=== PATIENT | male | born 1980 | race Caucasian/White ===

== ENCOUNTER 2017-05-01 17:16 | Emergency (ER) | payer SELFPAY ==
[~2017-05-01] VITALS: Ht 172.7 cm; Wt 72.4 kg
[~2017-05-01 17:16] MED LIST: IBUP-1277 PO
[2017-05-01 17:19] VITALS: TEMP 36.6; Ht 172.7 cm; Wt 72.4 kg
[2017-05-01] MEDS ORDERED: HYDR-5688 PO (17:47)
[2017-05-01] MEDS ORDERED: CLIN300C2 PO (17:47)
--- NOTE | 2017-05-01 17:48 | EMERGENCY ROOM VISIT NOTE ---
ED Visit Note First contact with patient: 17:26 CHIEF COMPLAINT: Toothache HISTORY OF PRESENT ILLNESS: This 36-year-old male patient presented to the emergency department ambulatory with a progressive toothache for past several weeks but has been worsening and he has had some facial swelling. The patient believes it is coming from right upper molar. The pain is now steady and severe and radiates to the face. The patient does not a dentist appointment set up and states he does not have insurance or dentist. They rate their pain a 8/10 and the ibuprofen and Tylenol they have been taking has not relieved the pain. The patient denies any discharge from the mouth. REVIEW OF SYSTEMS: A 10 system review of systems was completed with positives and pertinent negatives listed in the HPI. ALLERGIES: Penicillins, calamine, bee sting MEDICATIONS: Patient denies PMH: Patient denies SOCIAL HISTORY: The patient lives locally. He is employed PHYSICAL EXAM: Vitals are noted on the nurse's note and reviewed by myself. Vital signs stable. Temperature 36.6C orally. GENERAL: This is a 36-year-old male, in no acute distress, nondiaphoretic, well-developed well-nourished. Mouth: The right upper tooth is very carious and the gum is swollen and tender around it, without any discharge or signs of an abscess. The remainder of the pharynx and tonsils are without erythema, edema, or exudate. The airway is patent. There is no facial swelling, cervical or submandibular lymphadenopathy. The patient appears uncomfortable and in pain. The patient has overall very poor dental hygiene. ED COURSE: The patient was seen and examined. Previous visits were reviewed. The patient has very poor dentition. He does have some mild facial swelling. He is afebrile and nontoxic in appearance. There is no swelling beneath the tongue to suggest Thiago's angina. The patient will be given prescriptions for clindamycin and [place]. He was given information for [facility], Dr. Bruno and Dr. Garza. He should follow-up with the dentist for definitive management. He should return to the ER with any worsening symptoms. DIAGNOSIS: Odontalgia DISCHARGE INSTRUCTIONS & TREATMENT: Clindamycin 4 times daily for 10 days.[place] one tablet every 6 hours if needed for worse pain. Do not drink or drive while taking [place] and do not take with Tylenol. Followup with a dentist for definitive management of your tooth. Return with high fevers, worsening pain or swelling. Current/Historical Medications Scheduled Clindamycin Hcl (Cleocin), 300 MG PO QID Scheduled PRN Hydrocodone/Acetaminophen 5MG/325MG ([place] 5MG/325MG), 1 TABLET PO Q6 PRN for Pain Ibuprofen (Advil), 200-600 MG PO Q4H PRN for Pain Allergies Coded Allergies: Calamine (Verified Allergy, Mild, WORSENING RASH, 09/03/16) Penicillins (Unverified Allergy, Mild, 09/03/16) BEE STING (Verified Allergy, Unknown, UNKNOWN, 09/03/16) Vital Signs Date Time Temp Pulse Resp B/P (MAP) Pulse Ox O2 Delivery O2 Flow Rate FiO2 05/01/17 18:00 86 18 150/85 97 05/01/17 17:19 36.6 82 18 145/91 96 Room Air Departure Information Impression Primary Impression: Dental caries Additional Impression: Dental abscess Dispostion Home / Self-Care Condition GOOD Prescriptions Clindamycin Hcl (CLEOCIN) 300 Mg Cap 300 MG PO QID for 10 Days, #40 CAP Prov: Sarah Beth Herrmann PA-C 05/01/17 Hydrocodone/Acetaminophen 5MG/325MG ([place] 5MG/325MG) Tab 1 TABLET PO Q6 Y for Pain, #12 TAB For Initial Treatment Prov: Sarah Beth Herrmann PA-C 05/01/17 Referrals Yesenia Lizarraga D.O. (PCP) Flex Garza M.D. Patient Instructions [facility] Additional Instructions Clindamycin 4 times daily for 10 days.M[place] one tablet every 6 hours if needed for worse pain. Do not drink or drive while taking [place] and do not take with Tylenol. Followup with a dentist for definitive management of your tooth. Return with high fevers, worsening pain or swelling. Problem Qualifiers
[2017-05-01 18:00] VITALS: BP 150/85; PULSE 86; O2SAT 97
== END 2017-05-01 18:11 | disposition home or self-care (01) ==
LOC: C.EDB 17:18 → C.EDD 18:11
DX: K02.9 Dental caries, unspecified (principal); K04.7 Periapical abscess without sinus

== ENCOUNTER 2017-05-08 16:47 | Emergency (ER) | payer SELFPAY ==
[~2017-05-08] VITALS: Ht 172.7 cm; Wt 71.4 kg
[~2017-05-08 16:47] MED LIST changes: +CLIN300C2 PO; +HYDR-5688 PO
[2017-05-08 16:51] VITALS: TEMP 36.6; Ht 172.7 cm; Wt 71.4 kg
[2017-05-08] MEDS ORDERED: KETOROLAC TROMETHAMINE 30 MG/ML VIAL IV STA (17:30)
[2017-05-08 18:05] LABS: BASO % 0.4 %; BASO ABS # 0.03 K/uL (0-0.2); COMPLETE YES; EOS % 1.7 %; HEMATOCRIT 47.1 % (42-52); LYMPH % 28.9 %; LYMPH ABS # 2.39 K/uL (1.2-3.4); MEAN CELL VOLUME 96.3 fL (80-100); MEAN CORPUSCULAR HEMOGLOBIN 32.9 pg (25-34); MEAN CORPUSCULAR HGB CONC 34.2 g/dl (32-36); MEAN PLATELET VOLUME 10.7 fL (7.4-10.4); MONO % 10.5 %; NEUT % 58.5 %; PLATELET COUNT 222 K/uL (130-400); RED BLOOD COUNT 4.89 M/uL (4.7-6.1); WHITE BLOOD COUNT 8.28 K/uL (4.8-10.8)
[2017-05-08 18:13] LABS: POINT OF CARE TROPONIN I < 0.030 ng/ml (0-0.045)
[2017-05-08 18:13] LABS: INR 0.9 (0.9-1.1); PROTHROMBIN TIME (PATIENT) 10.1 SECONDS (9.0-12.0)
--- NOTE | 2017-05-08 18:22 | DIAGNOSTIC IMAGING REPORT ---
CHEST 2 VIEWS ROUTINE CLINICAL HISTORY: Left-sided chest pain COMPARISON STUDY: 01/13/2012 FINDINGS: The cardiac and mediastinal contours are normal. There is no evidence of focal pulmonary consolidation. There is no evidence of failure. No pleural effusions are visualized.[ No pneumothorax is visualized. IMPRESSION: No active disease in the chest. Electronically signed by: Dave Leary M.D. 05/08/2017 6:21 PM Dictated Date/Time: 05/08/2017 6:20 PM
[2017-05-08 18:48] LABS: ALB/GLOB RATIO 1.2 (0.9-2); ALKALINE PHOSPHATASE 93 U/L (45-117); ALT/SGPT 21 U/L (12-78); BLOOD UREA NITROGEN 16 mg/dl (7-18); BUN/CREATININE RATIO 15.7 (10-20); CALCIUM 9.5 mg/dl (8.5-10.1); CARBON DIOXIDE 27 mmol/L (21-32); CHLORIDE 105 mmol/L (98-107); GLUCOSE 110 mg/dl (70-99); SODIUM 138 mmol/L (136-145)
--- NOTE | 2017-05-08 19:01 | EMERGENCY ROOM VISIT NOTE ---
ED Visit Note First contact with patient: 17:12 CHIEF COMPLAINT: Left-sided chest pain times one day HISTORY OF PRESENT ILLNESS: Patient is an otherwise healthy 36-year-old white male who presents to the emergency department for evaluation of left-sided chest pain. He reports that his pain started abruptly yesterday around noon. He states that he suddenly developed some left-sided nasal congestion and a runny nose. He also developed a dull, constant, aching left-sided chest pain. It hurts to the touch also hurts with coughing and deep breathing. He has had a slight cough. He denies any shortness of breath. He did not take any medications, nor perform any interventions for his symptoms. He denies any direct trauma to the area, no unusual activity or heavy lifting which could have caused his symptoms. He feels sweaty and clammy at times, but denies any headache, lightheadedness, dizziness, nausea or vomiting. Pain does not radiate to the back, the jaw or the shoulder. He has been on clindamycin for about a week for a dental abscess which she states is improving. REVIEW OF SYSTEMS:Review of systems as per HPI. All other systems reviewed were negative. 10 systems reviewed. PMH: Electronic medical records are reviewed and summarized as above/below. See Problem List. SOCIAL HISTORY: Patient lives at home. He is employed. Smoker. PHYSICAL EXAM: Vital Signs: CONSTITUTIONAL: Patient is a well-appearing 36-year-old white male who is awake and alert and in no acute distress. Vital signs are stable. EYES: Pupils equal, round, reactive to light and accommodation. EOMs intact without nystagmus. Sclera are anicteric. ENT: Tympanic membranes intact, with normal landmarks. External canals are clear. Oral and nasopharynx are clear. Mucous membranes are moist, no lesions , tongue and gums appear normal. Poor dentition. NECK: Supple without lymphadenopathy. No thyromegaly. No meningeal signs. Full active range of motion without discomfort. CARDIOVASCULAR: Regular rate and rhythm, with normal S1 and S2, no murmur or gallop or rub is heard. No carotid bruits auscultated. No JVD. Peripheral pulses easily palpable. He has reproducible discomfort to palpation over the left costochondral border. RESPIRATORY: Breath sounds equal and clear to auscultation without wheezes, rales, or rhonchi heard. Full and equal chest expansion without accessory muscle use or retractions. ABDOMEN: Bowel sounds are present. Abdomen is soft, nontender and nondistended. INTEGUMENTARY: No lesions or rash, normal skin turgor. LYMPH: No lymphadenopathy. EMERGENCY DEPARTMENT COURSE: Patient was seen and assessed as above. His old records are reviewed. IV lock was initiated and he was medicated with Toradol 30 mg IV. Chest x-ray was obtained and was unremarkable. EKG was performed and was as noted below. CBC with differential, sedimentation rate, coags, cardiac enzymes, CMP and [id number] troponin and d-dimer were drawn. Laboratory studies demonstrated a normal white count, H&H, platelet count and coags. There is very slight slight elevation, nonspecific of his sedimentation rate. Electrolytes, renal functions, liver functions are all within normal limits. Troponin is negative 1 and Cardec enzymes are not elevated. Point-of- care d-dimer was normal, therefore further workup for PE was not pursued. All laboratory and diagnostic imaging studies were reviewed with the patient. He has reproducible left chest wall tenderness, and I suspect his symptoms are likely musculoskeletal in nature. Conservative care measures were discussed. He was encouraged to apply heat to the area and to take an anti-inflammatory medicine. The patient rated his pain a 5/10 at discharge. EKG: Normal sinus rhythm 76 beats per minute, no ectopy or acute ischemic changes, no change on review of prior EKGs. CHEST 2 VIEWS ROUTINE CLINICAL HISTORY: Left-sided chest pain COMPARISON STUDY: 01/13/2012 FINDINGS: The cardiac and mediastinal contours are normal. There is no evidence of focal pulmonary consolidation. There is no evidence of failure. No pleural effusions are visualized.[ No pneumothorax is visualized. IMPRESSION: No active disease in the chest. Differential diagnosis includes acute myocardial infarction, acute coronary syndrome, myocarditis, pericarditis, pericardial effusions /tamponade, esophageal perforation, pulmonary embolism, pneumonia, pneumothorax, cardiomyopathy, congestive heart failure, anemia , COPD/asthma exacerbation, musculoskeletal, anxiety, costochondritis,. Problem List Medical Problems: (1) Ankle pain Status: Resolved (2) Bilateral calcaneal fractures Status: Resolved (3) Bilateral calcaneal fractures Status: Resolved (4) Contusion of foot Status: Resolved (5) Dental abscess Status: Resolved (6) Dental caries Status: Resolved (7) Dental caries Status: Resolved (8) Fall Status: Resolved (9) Foot pain Status: Resolved (10) Foot pain Status: Resolved (11) Heel pain, bilateral Status: Resolved (12) Leg pain, bilateral Status: Resolved (13) Lumbar contusion Status: Resolved (14) Lumbar contusion Status: Resolved (15) Lumbar strain Status: Resolved (16) Odontalgia Status: Resolved (17) Osteopenia Status: Resolved (18) Periapical abscess Status: Resolved (19) Pre-syncope Status: Resolved Surgical Problems: (1) History of orthopedic surgery Status: Resolved Current/Historical Medications Scheduled Clindamycin Hcl (Cleocin), 300 MG PO QID Scheduled PRN Ibuprofen (Advil), 200-600 MG PO Q4H PRN for Pain Allergies Coded Allergies: Calamine (Verified Allergy, Mild, WORSENING RASH, 05/08/17) Penicillins (Unverified Allergy, Mild, 05/08/17) BEE STING (Verified Allergy, Unknown, UNKNOWN, 05/08/17) Vital Signs Date Time Temp Pulse Resp B/P (MAP) Pulse Ox O2 Delivery O2 Flow Rate FiO2 05/08/17 19:20 78 18 129/86 98 05/08/17 18:09 70 05/08/17 16:51 36.6 99 20 131/94 97 Room Air Laboratory Results 05/08/17 17:50 Red Blood Count 4.89, Mean Corpuscular Volume 96.3, Mean Corpuscular Hemoglobin 32.9, Mean Corpuscular Hemoglobin Concent 34.2, Mean Platelet Volume 10.7, Neutrophils (%) (Auto) 58.5, Lymphocytes (%) (Auto) 28.9, Monocytes (%) (Auto) 10.5, Eosinophils (%) (Auto) 1.7, Basophils (%) (Auto) 0.4, Neutrophils # (Auto ) 4.85, Lymphocytes # (Auto) 2.39, Monocytes # (Auto) 0.87, Eosinophils # (Auto ) 0.14, Basophils # (Auto) 0.03 05/08/17 17:50 Test 05/08/17 17:50 05/08/17 17:54 White Blood Count 8.28 K/uL (4.8-10.8) Red Blood Count 4.89 M/uL (4.7-6.1) Hemoglobin 16.1 g/dL (14.0-18.0) Hematocrit 47.1 % (42-52) Mean Corpuscular Volume 96.3 fL (80-100) Mean Corpuscular Hemoglobin 32.9 pg (25-34) Mean Corpuscular Hemoglobin Concent 34.2 g/dl (32-36) Platelet Count 222 K/uL (130-400) Mean Platelet Volume 10.7 fL (7.4-10.4) Neutrophils (%) (Auto) 58.5 % Lymphocytes (%) (Auto) 28.9 % Monocytes (%) (Auto) 10.5 % Eosinophils (%) (Auto) 1.7 % Basophils (%) (Auto) 0.4 % Neutrophils # (Auto) 4.85 K/uL (1.4-6.5) Lymphocytes # (Auto) 2.39 K/uL (1.2-3.4) Monocytes # (Auto) 0.87 K/uL (0.11-0.59) Eosinophils # (Auto) 0.14 K/uL (0-0.5) Basophils # (Auto) 0.03 K/uL (0-0.2) RDW Standard Deviation 46.7 fL (36.4-46.3) RDW Coefficient of Variation 13.2 % (11.5-14.5) Immature Granulocyte % (Auto) 0.0 % Immature Granulocyte # (Auto) 0.00 K/uL (0.00-0.02) Erythrocyte Sedimentation Rate 18 mm/hr (0-14) Prothrombin Time 10.1 SECONDS (9.0-12.0) Prothromb Time International Ratio 0.9 (0.9-1.1) Activated Partial Thromboplast Time 25.6 SECONDS (21.0-31.0) Partial Thromboplastin Ratio 1.0 Anion Gap 6.0 mmol/L (3-11) Est Creatinine Clear Calc Drug Dose 98.8 ml/min Estimated GFR () 111.7 Estimated GFR (Non- 96.4 BUN/Creatinine Ratio 15.7 (10-20) Calcium Level 9.5 mg/dl (8.5-10.1) Total Bilirubin 0.3 mg/dl (0.2-1) Aspartate Amino Transf (AST/SGOT) U/L (15-37) Alanine Aminotransferase (ALT/SGPT) 21 U/L (12-78) Alkaline Phosphatase 93 U/L (45-117) Total Creatine Kinase U/L (39-308) Creatine Kinase MB 2.0 ng/ml (0.5-3.6) Creatine Kinase MB Ratio (0-3.0) Total Protein 7.4 gm/dl (6.4-8.2) Albumin 4.0 gm/dl (3.4-5.0) Globulin 3.4 gm/dl (2.5-4.0) Albumin/Globulin Ratio 1.2 (0.9-2) Chemistry Specimen Hemolysis Bedside D-Dimer 182 ng/mlFEU (0-450) Bedside Troponin I < 0.030 ng/ml (0-0.045) Medications Administered Medications (Trade) Dose Ordered Sig/Selam Route Start Time Stop Time Status Last Admin Dose Admin Ketorolac Tromethamine (Toradol Inj) 30 mg NOW STAT IV 05/08/17 17:30 05/08/17 17:32 DC 05/08/17 17:57 30 MG Departure Information Impression Primary Impression: Chest wall pain Referrals Yesenia Lizarraga D.O. (PCP) Patient Instructions [facility] Additional Instructions Ibuprofen(Motrin, Advil) may be used for fever or pain. Use 600mg every six hours as needed. Take with food. Avoid using more than 2400mg in a 24 hour period. Do not use 2400mg per day for more than three consecutive days without physician direction. Prolonged inappropriate use can lead to stomach upset or ulcers. (AND/OR) Acetaminophen(Tylenol) may be used for fever or pain. Use 1000mg every six hours as needed. Avoid using more than 3000mg in a 24 hour period. Heat to the affected area. Rest and drink plenty of fluids as tolerated. Continue current medications. Avoid strenuous activities and anything that worsens your pain. Resume normal activities once your symptoms resolve. Return to the ER immediately for worsening or persistent chest pain, abdominal pain, vomiting, fevers, chest pains, difficulty breathing, worsening of your condition, or as needed. Follow up with your primary physician in 2-3 days for a recheck of your current condition.
[2017-05-08 19:20] VITALS: BP 129/86; PULSE 78; O2SAT 98
== END 2017-05-08 19:21 | disposition home or self-care (01) ==
LOC: C.EDB 16:49 → C.EDC 19:21
DX: R07.89 Other chest pain (principal); F17.200 Nicotine dependence, unspecified, uncomplicated; Z87.81 Personal history of (healed) traumatic fracture; Z87.828 Personal history of other (healed) physical injury and trauma; Z86.19 Personal history of other infectious and parasitic diseases; Z91.81 History of falling; Z88.0 Allergy status to penicillin; Z88.8 Allergy status to other drugs, medicaments and biological substances; Z91.030 Bee allergy status

== ENCOUNTER 2018-03-08 13:45 | Emergency (ER) | payer SELFPAY ==
[~2018-03-08] VITALS: Ht 172.7 cm; Wt 67.9 kg
[~2018-03-08 13:45] MED LIST changes: -CLIN300C2 PO; -HYDR-5688 PO
[2018-03-08 13:50] VITALS: TEMP 36.7; Ht 172.7 cm; Wt 67.9 kg
[2018-03-08] MEDS ORDERED: SODIUM CHLORIDE 0.9% 1000ML 1,000 ML IV STA (14:27)
[2018-03-08] MEDS ORDERED: ONDANSETRON INJ 2 MG/ML 2 ML VIAL IV STA (14:27)
[2018-03-08] MEDS ORDERED: KETOROLAC TROMETHAMINE 30 MG/ML VIAL IV STA (14:27)
[2018-03-08 14:57] LABS: BASO % 0.3 %; BASO ABS # 0.03 K/uL (0-0.2); EOS % 0.7 %; EOS ABS # 0.07 K/uL (0-0.5); HEMATOCRIT 43.5 % (42-52); HEMOGLOBIN 15.6 g/dL (14.0-18.0); IG# 0.02 K/uL (0.00-0.02); LYMPH % 23.3 %; LYMPH ABS # 2.25 K/uL (1.2-3.4); MEAN CELL VOLUME 92.9 fL (80-100); MEAN CORPUSCULAR HEMOGLOBIN 33.3 pg (25-34); MEAN CORPUSCULAR HGB CONC 35.9 g/dl (32-36); MEAN PLATELET VOLUME 10.8 fL (7.4-10.4); MONO % 8.2 %; MONO ABS # 0.79 K/uL (0.11-0.59); NEUT % 67.3 %; PLATELET COUNT 221 K/uL (130-400); RED CELL DISTRIBUTION WIDTH CV 13.2 % (11.5-14.5); RED CELL DISTRIBUTION WIDTH SD 44.9 fL (36.4-46.3); WHITE BLOOD COUNT 9.66 K/uL (4.8-10.8)
[2018-03-08 15:13] LABS: ALBUMIN 4.2 gm/dl (3.4-5.0); ALT/SGPT 17 U/L (12-78); AST/SGOT 14 U/L (15-37); BLOOD UREA NITROGEN 14 mg/dl (7-18); CALCIUM 8.7 mg/dl (8.5-10.1); CARBON DIOXIDE 29 mmol/L (21-32); CREATININE 0.99 mg/dl (0.60-1.40); GLUCOSE 75 mg/dl (70-99); LIPASE 128 U/L (73-393); POTASSIUM 4.1 mmol/L (3.5-5.1); SODIUM 139 mmol/L (136-145)
[2018-03-08 15:16] LABS: ALKALINE PHOSPHATASE 87 U/L (45-117)
[2018-03-08 15:19] VITALS: BP 113/75; PULSE 62; O2SAT 99
--- NOTE | 2018-03-08 15:19 | DIAGNOSTIC IMAGING REPORT ---
ABD/PELVIS WITHOUT FOR STONE HISTORY: 37 years-old Male flank pain acute bilateral flank pain COMPARISON: None available TECHNIQUE: Multiple axial CT images of the abdomen and pelvis were obtained without the use of IV contrast A dose lowering technique was used consistent with the principals of TAB. FINDINGS: Lung bases are generally clear. There is no pneumatosis or pneumoperitoneum identified. Imaged inferior cardiac chambers are unremarkable. Liver, spleen, gallbladder, pancreas and adrenal glands are within normal limits. Kidneys, ureters are unremarkable without obstructing calculi or obstructive uropathy identified. Mild wall thickening of the bladder with partial distention. Calcifications are seen within the central prostate. Aorta is normal in course and caliber. No bulky adenopathy. No bowel obstruction or focal bowel wall thickening. Normal appendix. Minimal noninflamed colonic diverticula. Soft tissues are unremarkable. The bones appear intact. Orthopedic hardware of the left hip appears intact. IMPRESSION: 1. No acute intra-abdominal or intrapelvic abnormality identified, specifically no renal calculi or obstructive uropathy. 2. Minimal colonic diverticulosis without diverticulitis. 3. Normal appendix. 4. Mild wall thickening of the bladder is likely secondary to partial distention. Correlate with urinalysis to exclude cystitis. The above report was generated using voice recognition software. It may contain grammatical, syntax or spelling errors. Electronically signed by: Anthony Ames M.D. 03/08/2018 3:17 PM Dictated Date/Time: 03/08/2018 3:11 PM
--- NOTE | 2018-03-08 18:08 | EMERGENCY ROOM VISIT NOTE ---
History Report prepared by Patrick: Genaro Person Under the Supervision of: Mili SorensonO. First contact with patient: 14:23 Chief Complaint: FLANK PAIN Stated Complaint: KIDNEY PAIN, SOB History of Present Illness The patient is a 37 year old male who presents to the Emergency Room with complaints of waxing and waning flank pain and shortness of breath that began this morning. The patient states that his symptoms began with lower abdominal pains this morning, and worsened to his flank pain. He states that his shortness of breath is secondary to the pain taking his breath away. Pain is sharp stabbing constant in the lower back. 10 out of 10 currently. Movement worsens his symptoms i.e. twisting turning and bending. He denies any other headache, change in vision, fevers, chest pain, nausea, vomiting, diarrhea, pain with urination, and melena. Source of History: patient Onset: This morning Position: abdomen, back (Flanks) Timing: waxes/wanes Associated Symptoms: + SOB, + abdominal pain, No nausea, No vomiting Review of Systems See HPI for pertinent positives & negatives. A total of 10 systems reviewed and were otherwise negative. Past Medical & Surgical Medical Problems: (1) Ankle pain (2) Bilateral calcaneal fractures (3) Bilateral calcaneal fractures (4) Contusion of foot (5) Dental abscess (6) Dental caries (7) Dental caries (8) Fall (9) Foot pain (10) Foot pain (11) Heel pain, bilateral (12) Leg pain, bilateral (13) Lumbar contusion (14) Lumbar contusion (15) Lumbar strain (16) No Known Active Medical Problems (17) Odontalgia (18) Osteopenia (19) Periapical abscess (20) Pre-syncope Surgical Problems: (1) History of orthopedic surgery Family History Cancer Diabetes mellitus Hypertension Lung disease Seizures Social History Smoking Status: Current Every Day Smoker Alcohol Use: occasionally Marital Status: in relationship Housing Status: lives with family Occupation Status: unemployed Current/Historical Medications No Active Prescriptions or Reported Meds Allergies Coded Allergies: Calamine (Verified Allergy, Mild, WORSENING RASH, 03/08/18) Penicillins (Unverified Allergy, Mild, 03/08/18) BEE STING (Verified Allergy, Unknown, UNKNOWN, 03/08/18) Physical Exam Vital Signs Date Time Temp Pulse Resp B/P (MAP) Pulse Ox O2 Delivery O2 Flow Rate FiO2 03/08/18 15:19 62 16 113/75 99 Room Air 03/08/18 13:50 36.7 101 18 130/81 97 Room Air Physical Exam GENERAL: Sitting up in bed, alert, disheveled appearing, holding lower back, well nourished, no distress, non-toxic EYE EXAM: normal conjunctiva. PERRL and EOM's intact. OROPHARYNX: no exudate, no erythema, lips, buccal mucosa, and tongue normal and mucous membranes are moist NECK: supple, no nuchal rigidity, no adenopathy, non-tender LUNGS: Clear to auscultation. Normal chest wall mechanics HEART: no murmurs, S1 normal and S2 normal ABDOMEN: abdomen soft, non-tender, normo-active bowel sounds, no masses, no rebound or guarding. BACK: Back is symmetrical on inspection and there is no deformity, no midline tenderness, no CVA tenderness. There is lower lumbar paraspinal tenderness bilaterally. SKIN: no rashes and no bruising UPPER EXTREMITIES: upper extremities are grossly normal. LOWER EXTREMITIES: No pitting edema. Flexion/extension of hips, knees, ankles, and EHL are 5/5 bilaterally. NEURO EXAM: Normal sensorium, cranial nerves II-XII intact, normal speech, no weakness of arm. Gross sensation intact. Medical Decision & Procedures ER Provider Diagnostic Interpretation: Radiology results as stated below per my review and the radiologist's interpretation: ABD/PELVIS WITHOUT FOR STONE HISTORY: 37 years-old Male flank pain acute bilateral flank pain COMPARISON: None available TECHNIQUE: Multiple axial CT images of the abdomen and pelvis were obtained without the use of IV contrast A dose lowering technique was used consistent with the principals of ALARA. FINDINGS: Lung bases are generally clear. There is no pneumatosis or pneumoperitoneum identified. Imaged inferior cardiac chambers are unremarkable. Liver, spleen, gallbladder, pancreas and adrenal glands are within normal limits. Kidneys, ureters are unremarkable without obstructing calculi or obstructive uropathy identified. Mild wall thickening of the bladder with partial distention. Calcifications are seen within the central prostate. Aorta is normal in course and caliber. No bulky adenopathy. No bowel obstruction or focal bowel wall thickening. Normal appendix. Minimal noninflamed colonic diverticula. Soft tissues are unremarkable. The bones appear intact. Orthopedic hardware of the left hip appears intact. IMPRESSION: 1. No acute intra-abdominal or intrapelvic abnormality identified, specifically no renal calculi or obstructive uropathy. 2. Minimal colonic diverticulosis without diverticulitis. 3. Normal appendix. 4. Mild wall thickening of the bladder is likely secondary to partial distention. Correlate with urinalysis to exclude cystitis. The above report was generated using voice recognition software. It may contain grammatical, syntax or spelling errors. Electronically signed by: Anthony Ames M.D. 03/08/2018 3:17 PM Dictated Date/Time: 03/08/2018 3:11 PM Laboratory Results 03/08/18 14:34 Red Blood Count 4.68, Mean Corpuscular Volume 92.9, Mean Corpuscular Hemoglobin 33.3, Mean Corpuscular Hemoglobin Concent 35.9, Mean Platelet Volume 10.8, Neutrophils (%) (Auto) 67.3, Lymphocytes (%) (Auto) 23.3, Monocytes (%) (Auto) 8.2, Eosinophils (%) (Auto) 0.7, Basophils (%) (Auto) 0.3, Neutrophils # (Auto) 6.50, Lymphocytes # (Auto) 2.25, Monocytes # (Auto) 0.79, Eosinophils # (Auto) 0.07, Basophils # (Auto) 0.03 03/08/18 14:34 Test 03/08/18 14:34 03/08/18 14:46 White Blood Count 9.66 K/uL (4.8-10.8) Red Blood Count 4.68 M/uL (4.7-6.1) Hemoglobin 15.6 g/dL (14.0-18.0) Hematocrit 43.5 % (42-52) Mean Corpuscular Volume 92.9 fL (80-100) Mean Corpuscular Hemoglobin 33.3 pg (25-34) Mean Corpuscular Hemoglobin Concent 35.9 g/dl (32-36) Platelet Count 221 K/uL (130-400) Mean Platelet Volume 10.8 fL (7.4-10.4) Neutrophils (%) (Auto) 67.3 % Lymphocytes (%) (Auto) 23.3 % Monocytes (%) (Auto) 8.2 % Eosinophils (%) (Auto) 0.7 % Basophils (%) (Auto) 0.3 % Neutrophils # (Auto) 6.50 K/uL (1.4-6.5) Lymphocytes # (Auto) 2.25 K/uL (1.2-3.4) Monocytes # (Auto) 0.79 K/uL (0.11-0.59) Eosinophils # (Auto) 0.07 K/uL (0-0.5) Basophils # (Auto) 0.03 K/uL (0-0.2) RDW Standard Deviation 44.9 fL (36.4-46.3) RDW Coefficient of Variation 13.2 % (11.5-14.5) Immature Granulocyte % (Auto) 0.2 % Immature Granulocyte # (Auto) 0.02 K/uL (0.00-0.02) Anion Gap 5.0 mmol/L (3-11) Est Creatinine Clear Calc Drug Dose 98.1 ml/min Estimated GFR () 112.3 Estimated GFR (Non- 96.9 BUN/Creatinine Ratio 14.6 (10-20) Calcium Level 8.7 mg/dl (8.5-10.1) Total Bilirubin 0.3 mg/dl (0.2-1) Direct Bilirubin < 0.1 mg/dl (0-0.2) Aspartate Amino Transf (AST/SGOT) 14 U/L (15-37) Alanine Aminotransferase (ALT/SGPT) 17 U/L (12-78) Alkaline Phosphatase 87 U/L (45-117) Total Protein 8.0 gm/dl (6.4-8.2) Albumin 4.2 gm/dl (3.4-5.0) Lipase 128 U/L (73-393) Urine Color YELLOW Urine Appearance CLEAR (CLEAR) Urine pH 6.5 (4.5-7.5) Urine Specific [place] 1.012 (1.000-1.030) Urine Protein NEG (NEG) Urine Glucose (UA) NEG (NEG) Urine Ketones NEG (NEG) Urine Occult Blood NEG (NEG) Urine Nitrite NEG (NEG) Urine Bilirubin NEG (NEG) Urine Urobilinogen NEG (NEG) Urine Leukocyte Esterase NEG (NEG) Urine WBC (Auto) 1-5 /hpf (0-5) Urine RBC (Auto) 0-4 /hpf (0-4) Urine Hyaline Casts (Auto) 0 /lpf (0-5) Urine Epithelial Cells (Auto) 0-5 /lpf (0-5) Urine Bacteria (Auto) NEG (NEG) Laboratory results per my review. Medications Administered Medications (Trade) Dose Ordered Sig/Selam Route Start Time Stop Time Status Last Admin Dose Admin Sodium Chloride 1,000 ml @ 999 mls/hr Q1H1M STAT IV 03/08/18 14:27 03/08/18 15:27 DC 03/08/18 14:45 999 MLS/HR Ondansetron HCl (Zofran Inj) 4 mg NOW STAT IV 03/08/18 14:27 03/08/18 14:29 DC 03/08/18 14:46 4 MG Ketorolac Tromethamine (Toradol Inj) 30 mg NOW STAT IV 03/08/18 14:27 03/08/18 14:29 DC 03/08/18 14:45 30 MG ED Course ED COURSE: Vital signs were reviewed and showed normal vitals. The patients medical record was reviewed The above diagnostic studies were performed and reviewed. ED treatments and interventions as stated above. 1424: The patient was evaluated in room B12B. A complete history and physical examination was performed. 1427: Ordered Toradol 30 mg IV, Zofran 4 mg IV, Sodium Chloride 1000 mL @ 999 mL /hr IV. 1358: Upon reevaluation, the patient is resting in bed.I discussed my findings with the patient and he understands and agrees with the treatment plan. Based on the patients age, coexisting illnesses, exam and lab findings the decision to treat as an outpatient was made. The patient remained stable while under my care. The patient appeared well at the time of discharge. Medical Decision Differential diagnosis: Etiologies such as renal colic, appendicitis, diverticulitis, mesenteric ischemia, aortic pathology, infections, inflammatory bowel disease, PUD, biliary pathology, UTI, as well as others were entertained. Patient is a 37-year-old male who presents to ER for lower back pain. He has a benign abdominal exam. Vitals are stable. CBC along with BMP, LFTs, bilirubin lipase is normal. UA was negative. CT abdomen pelvis was benign. Patient was given IV Toradol. He did feel significant better. UA as discussed above was unremarkable. I do favor this likely muscle skeletal with twisting turning bending and palpation worsening his symptoms. He was updated at bedside. He is discharged follow-up with PCP as an outpatient. Discussed with Pt concerning signs and symptoms to watch out for. Pt was instructed to follow up with their PCP and discussed with the patient their option to return to the ED at anytime for persistent or worsening symptoms. The appropriate anticipatory guidance and out-patient management, including indications for return to the emergency department, were explained at length to the patient and understood. Medication Reconcilliation Current Medication List: was personally reviewed by me Blood Pressure Screening Patient's blood pressure: Normal blood pressure Impression Primary Impression: Back pain Scribe Attestation The scribe's documentation has been prepared under my direction and personally reviewed by me in its entirety. I confirm that the note above accurately reflects all work, treatment, procedures, and medical decision making performed by me. Departure Information Dispostion Home / Self-Care Prescriptions No Active Prescriptions or Reported Meds Referrals Yesenia Lizarraga D.O. (PCP) Forms HOME CARE DOCUMENTATION FORM, IMPORTANT VISIT INFORMATION Patient Instructions My [facility] Additional Instructions Please follow up with your primary care doctor with in the next 24 hours. Any worsening of your symptoms, please return to the ED immediately. This includes any fevers greater than 100.4, worsening pain, chest pain, shortness breath, persistent nausea, vomiting, unable to eat or drink, or any other concerning signs or symptoms from your standpoint. Please take Tylenol Motrin as needed for pain. Problem Qualifiers Primary Impression: Back pain Back pain location: low back pain Chronicity: acute Back pain laterality: bilateral Sciatica presence: unspecified whether sciatica present Qualified Codes: M54.5 - Low back pain
== END 2018-03-08 15:43 | disposition home or self-care (01) ==
LOC: C.EDB 13:46
DX: M54.5 Low back pain (principal); F17.200 Nicotine dependence, unspecified, uncomplicated; Z87.828 Personal history of other (healed) physical injury and trauma; Z88.8 Allergy status to other drugs, medicaments and biological substances; Z88.0 Allergy status to penicillin; Z91.030 Bee allergy status